=== PATIENT | female | born 1985 | race Two or more races ===

== ENCOUNTER 2017-03-08 15:19 | Emergency (ER) | payer SELFPAY ==
[2017-03-08 17:06] LABS: ABSOLUTE BASOPHILS # (AUTO) 0.1 10^3/uL (0.0-0.2); ABSOLUTE EOSINOPHILS # (AUTO) 0.1 10^3/uL (0.0-0.6); ABSOLUTE LYMPHOCYTES (AUTO) 1.6 10^3/uL (0.5-4.7); ABSOLUTE MONOCYTES (AUTO) 0.9 10^3/uL (0.1-1.4); ABSOLUTE NEUT (AUTO) 9.4 10^3/uL (1.7-8.2); BASOPHILS % (AUTO) 0.9 % (0-2); EOSINOPHILS % (AUTO) 0.8 % (0-6); HEMATOCRIT 42.5 % (36.0-47.0); HEMOGLOBIN 14.1 g/dL (12.0-15.5); HGB HCT DIFFERENCE -0.2; LYMPHOCYTES % (AUTO) 13.2 % (13-45); MEAN CORPUSCULAR HEMOGLOBIN 28.8 pg (27.0-33.4); MEAN CORPUSCULAR VOLUME 87 fl (80-97); MONOCYTES % (AUTO) 7.4 % (3-13); RED BLOOD COUNT 4.89 10^6/uL (3.72-5.28); RED CELL DISTRIBUTION WIDTH 13.5 % (11.5-14.0); SEGMENTED NEUTROPHILS % (AUTO) 77.7 % (42-78); WHITE BLOOD COUNT 12.1 10^3/uL (4.0-10.5)
[2017-03-08 17:27] LABS: ALANINE AMINOTRANSFERASE 21 U/L (9-52); ALBUMIN 4.3 g/dL (3.5-5.0); ALKALINE PHOSPHATASE 45 U/L (38-126); ANION GAP 10 (5-19); ASPARTATE AMINO TRANSFERASE 21 U/L (14-36); BILIRUBIN,DIRECT 0.2 mg/dL (0.0-0.4); BILIRUBIN,TOTAL 0.5 mg/dL (0.2-1.3); BLOOD UREA NITROGEN 11 mg/dL (7-20); CALCIUM 9.3 mg/dL (8.4-10.2); CARBON DIOXIDE 26 mmol/L (22-30); CHLORIDE 105 mmol/L (98-107); GLUCOSE 72 mg/dL (75-110); POTASSIUM 3.7 mmol/L (3.6-5.0); SODIUM 141.1 mmol/L (137-145); TOTAL PROTEIN 8.4 g/dL (6.3-8.2)
--- NOTE | 2017-03-08 19:29 | ER Document Report ---
ED General - General Chief Complaint: Irregular Pulse Stated Complaint: POSSIBLE SYNCOPE Time Seen by Provider: 03/08/17 16:37 Notes: Patient is a 32-year-old female with past medical history of palpitations who presents with a 1 minute episode of palpitations with associated lightheadedness. Her symptoms have since resolved. Nothing triggered her episode and notes that it did resolve without intervention. Does admit to caffeine use but denies any nicotine or stimulant use. States she has had similar symptoms in the past. She has never been evaluated by cardiology. States that she has a similar episode approximately once every 2 weeks. Denies any associated shortness of breath, chest pain, nausea, vomiting, abdominal pain , or hemoptysis. No history of DVT or pulmonary embolus. No prior cardiac history. TRAVEL OUTSIDE OF THE [place] IN LAST 30 DAYS: No - Related Data Allergies/Adverse Reactions: No Known Allergies Allergy (Unverified 03/08/17 15:46) Past Medical History - General Information source: Patient - Social History Smoking Status: Never Smoker Chew tobacco use (# tins/day): No Frequency of alcohol use: None Drug Abuse: None Lives with: Spouse/Significant other Family History: Reviewed & Not Pertinent Patient has suicidal ideation: No Patient has homicidal ideation: No Renal/ Medical History: Denies: Hx Peritoneal Dialysis Past Surgical History: Reports: Hx Tubal Ligation Review of Systems - Review of Systems Notes: Constitutional: Negative for fever. HENT: Negative for sore throat. Eyes: Negative for visual changes. Cardiovascular: Negative for chest pain. Respiratory: Negative for shortness of breath. Gastrointestinal: Negative for abdominal pain, vomiting or diarrhea. Genitourinary: Negative for dysuria. Musculoskeletal: Negative for back pain. Skin: Negative for rash. Neurological: Negative for headaches, weakness or numbness. 10 point ROS negative except as marked above and in HPI. Physical Exam - Vital signs Vitals: Temp Pulse Resp BP Pulse Ox 98.0 F 111 H 16 116/74 100 03/08/17 15:48 03/08/17 15:48 03/08/17 15:48 03/08/17 15:48 03/08/17 15:48 Interpretation: Tachycardic Notes: PHYSICAL EXAMINATION: GENERAL: Well-appearing, well-nourished and in no acute distress. HEAD: Atraumatic, normocephalic. EYES: Pupils equal round and reactive to light, extraocular movements intact, sclera anicteric, conjunctiva are normal. ENT: nares patent, oropharynx clear without exudates. Moist mucous membranes. NECK: Normal range of motion, supple without lymphadenopathy LUNGS: Breath sounds clear to auscultation bilaterally and equal. No wheezes rales or rhonchi. HEART: Regular rate and rhythm without murmurs ABDOMEN: Soft, nontender, normoactive bowel sounds. No guarding, no rebound. No masses appreciated. EXTREMITIES: Normal range of motion, no pitting or edema. No cyanosis. NEUROLOGICAL: No focal neurological deficits. Moves all extremities spontaneously and on command. PSYCH: Normal mood, normal affect. SKIN: Warm, Dry, normal turgor, no rashes or lesions noted. Course - Re-evaluation Re-evalutation: 03/08/17 19:28 Patient presents with palpitations but is in no acute distress. Vitals within normal limits at time of arrival. EKG unremarkable with a normal sinus rhythm. Laboratories are unremarkable. Patient denies any chest pain, shortness of breath, or vomiting. At this time based on exam and history do not suspect a new onset arrhythmia, ACS, acute pulmonary embolus, aortic dissection. Patient encouraged to follow-up with their primary care physician as well as cardiology and a referral has been provided. At this time will discharge with return precautions and follow-up recommendations. Verbal discharge instructions given a the bedside and opportunity for questions given. Medication warnings reviewed. Patient is in agreement with this plan and has verbalized understanding of return precautions and the need for primary care follow-up in the next 24-72 hours. - Vital Signs Vital signs: Temp Pulse Resp BP Pulse Ox 98.6 F 104 H 16 112/74 99 03/08/17 19:37 03/08/17 19:37 03/08/17 19:37 03/08/17 19:37 03/08/17 19:37 - Laboratory Result Diagrams: 03/08/17 16:55 03/08/17 16:55 Laboratory results interpreted by me: 03/08/17 03/08/17 16:55 16:55 WBC 12.1 H Absolute Neutrophils 9.4 H Glucose 72 L Total Protein 8.4 H - EKG Interpretation by Me Additional EKG results interpreted by me: 03/08/17 19:28 Normal sinus rhythm. Rate 92. No ST elevations or depressions. QTC is 446. Discharge - Discharge Clinical Impression: Palpitations Condition: Good Disposition: HOME, SELF-CARE Additional Instructions: Please follow-up closely with cardiology regarding your palpitations. Return if you pass out, have shortness of breath, persistent vomiting, develop significant chest pain, or have any other symptoms that are concerning to you. Referrals: DUSTIN CASTILLO MD [ACTIVE STAFF] - Follow up as needed
[2017-03-08 19:40] VITALS: BP 112/74
--- NOTE | 2017-03-08 20:42 | ER Document Report ---
ED Medical Screen (RME) - General Chief Complaint: Irregular Pulse Stated Complaint: POSSIBLE SYNCOPE Time Seen by Provider: 03/08/17 16:37 Mode of Arrival: Ambulatory Information source: Patient Notes: Presents emergency department with complaints of feeling shaky lightheaded like she was going to pass out. Reports this happened in the past. TRAVEL OUTSIDE OF THE [place] IN LAST 30 DAYS: No - Related Data Allergies/Adverse Reactions: No Known Allergies Allergy (Unverified 03/08/17 15:46) Past Medical History - Social History Chew tobacco use (# tins/day): No Frequency of alcohol use: None Drug Abuse: None Renal/ Medical History: Denies: Hx Peritoneal Dialysis Past Surgical History: Reports: Hx Tubal Ligation Physical Exam - Vital signs Vitals: Temp Pulse Resp BP Pulse Ox 98.0 F 111 H 16 116/74 100 03/08/17 15:48 03/08/17 15:48 03/08/17 15:48 03/08/17 15:48 03/08/17 15:48 Course - Vital Signs Vital signs: Temp Pulse Resp BP Pulse Ox 98.6 F 104 H 16 112/74 99 03/08/17 19:37 03/08/17 19:37 03/08/17 19:37 03/08/17 19:37 03/08/17 19:37 - Laboratory Result Diagrams: 03/08/17 16:55 03/08/17 16:55 Laboratory results interpreted by me: 03/08/17 03/08/17 16:55 16:55 WBC 12.1 H Absolute Neutrophils 9.4 H Glucose 72 L Total Protein 8.4 H Doctor's Discharge - Discharge Clinical Impression: Palpitations Condition: Good Disposition: HOME, SELF-CARE Additional Instructions: Please follow-up closely with cardiology regarding your palpitations. Return if you pass out, have shortness of breath, persistent vomiting, develop significant chest pain, or have any other symptoms that are concerning to you. Referrals: DUSTIN CASTILLO MD [ACTIVE STAFF] - Follow up as needed
--- NOTE | 2017-03-09 11:02 | EKG REPORT ---
SEVERITY:- NORMAL ECG - SINUS RHYTHM : Confirmed by: Abril Snowden MD 09-Mar-2017 11:01:20
== END 2017-03-08 19:49 | disposition home or self-care (01) ==
LOC: ER 15:19
DX: R55 Syncope and collapse (principal); R00.2 Palpitations; Z98.51 Tubal ligation status
CPT/HCPCS: 36415; 80053; 84703; 85025; 93005; 93010; 99285